=== PATIENT | male | born 1985 | race Caucasian/White ===

== ENCOUNTER 2017-01-12 22:28 | Emergency (ER) | payer BC ==
[2017-01-13 00:40] VITALS: BP 130/74
== END 2017-01-13 00:40 | disposition home or self-care (01) ==
LOC: ED 22:28
DX: M13.0 Polyarthritis, unspecified (principal); M10.9 Gout, unspecified
CPT/HCPCS: J1885

== ENCOUNTER 2017-03-01 19:32 | Emergency (ER) | payer BC ==
[2017-03-01 21:44] VITALS: BP 129/80
== END 2017-03-01 21:44 | disposition home or self-care (01) ==
LOC: ED 19:32
DX: S46.912A Strain of unspecified muscle, fascia and tendon at shoulder and upper arm level, left arm, initial encounter (principal); Z88.0 Allergy status to penicillin; Z88.1 Allergy status to other antibiotic agents; Z79.899 Other long term (current) drug therapy; Z79.1 Long term (current) use of non-steroidal anti-inflammatories (NSAID); X58.XXXA Exposure to other specified factors, initial encounter; Y93.89 Activity, other specified; Y92.89 Other specified places as the place of occurrence of the external cause; Y99.8 Other external cause status
CPT/HCPCS: J1170; J1885; Q0092; Q0162